=== PATIENT | female | born 1935 | race Caucasian/White ===

== ENCOUNTER 2017-05-12 08:11 | Emergency (ER) | payer MEDICARE ==
[~2017-05-12] VITALS: Ht 162.6 cm; Wt 90.0 kg
[~2017-05-12 08:11] MED LIST: AUGMENTIN875TAB PO; CELEBREX100 MG PO; LORTAB5 PO; TYLENOL ARTH650 M1 OR
[2017-05-12] MEDS ORDERED: EC-NAPROSYN500 MG PO (09:46)
[2017-05-12 09:56] VITALS: BP 128/61
== END 2017-05-12 10:05 | disposition home or self-care (01) ==
LOC: ED 08:11
DX: M79.662 Pain in left lower leg (principal)